=== PATIENT | male | born 1975 ===

== ENCOUNTER 2020-10-13 16:36 | Emergency (ER) | payer OTHER ==
[~2020-10-13] VITALS: Ht 195.6 cm; Wt 95.3 kg
[2020-10-13] MEDS ORDERED: ORPHENADRINE C100 MG PO (22:32)
[2020-10-13] MEDS ORDERED: KETO10TA2 PO (22:32)
[2020-10-13] MEDS ORDERED: ACETAMINOPHEN650 M2 (22:38)
== END 2020-10-13 22:44 | disposition home or self-care (01) ==
LOC: ER 16:36
DX: S13.4XXA Sprain of ligaments of cervical spine, initial encounter (principal); M62.838 Other muscle spasm; V49.9XXA Car occupant (driver) (passenger) injured in unspecified traffic accident, initial encounter; Y93.89 Activity, other specified; Y92.488 Other paved roadways as the place of occurrence of the external cause; Y99.8 Other external cause status

== ENCOUNTER 2025-06-09 07:45 | Day surgery (SDC) | payer OTHER ==
[~2025-06-09 07:45] MED LIST: ACETAMINOPHEN650 M2; KETO10TA2 PO; ORPHENADRINE C100 MG PO
[2025-06-09] MEDS ORDERED: MIDAZOLAM HCL 2 MG/2 ML VIAL IV ONE (12:00)
[2025-06-09] MEDS ORDERED: DIPHENHYDRAMINE HCL 50 MG/ML VIAL 1ML IV ONE (12:00)
[2025-06-09] MEDS ORDERED: fentaNYL CITRATE 50 MCG/ML AMPUL IV PUSH ONE (12:00)
== END 2025-06-09 12:35 | disposition home or self-care (01) ==
LOC: AMB-ENDOS 07:45
PROVIDERS: ATTEND Colon & Rectal Surgery
DX: K63.5 Polyp of colon (principal)